=== PATIENT | male | born 1950 | race Asian ===

== ENCOUNTER 2016-04-24 05:53 | Emergency (ER) | payer OTHER ==
[~2016-04-24] VITALS: Ht 172.7 cm; Wt 72.5 kg
[2016-04-24 09:07] VITALS: BP 146/87
== END 2016-04-24 09:27 | disposition home or self-care (01) ==
LOC: EMS 05:55
DX: R04.0 Epistaxis (principal); F17.210 Nicotine dependence, cigarettes, uncomplicated
CPT/HCPCS: 99281; 99283